=== PATIENT | female | born 1965 | race Hispanic/Latino ===

== ENCOUNTER 2022-09-09 14:03 | Emergency (ER) | payer OTHER ==
[~2022-09-09] VITALS: Ht 160 cm; Wt 119.3 kg
[2022-09-09 14:59] LABS: BASOPHILS % 0.5 % (0.0-1.0); EOSINOPHILS # (AUTO) 0.2 (0.0-0.4); EOSINOPHILS % 2.8 % (0.0-6.0); HEMATOCRIT 42.7 % (34.2-44.1); HEMOGLOBIN 12.5 g/dL (12.0-16.0); LYMPHOCYTES # (AUTO) 1.4 (1.0-3.2); MEAN CORPUSCULAR HEMOGLOBIN 27.3 pg (28-32); MEAN CORPUSCULAR HGB CONC 29.3 g/dL (31-35); MEAN CORPUSCULAR VOLUME 93.2 fL (81-99); MONOCYTES # (AUTO) 0.4 (0.2-0.8); MONOCYTES % 4.9 % (4.4-11.3); NEUTROPHILS # (AUTO) 6.2 (2.1-6.9); NEUTROPHILS % 74.4 % (38.7-80.0); PLATELET COUNT 320 x10e3/uL (140-360); RED BLOOD COUNT 4.58 x10e6/uL (3.6-5.1); RED CELL DISTRIBUTION WIDTH 13.5 % (11.7-14.4)
[2022-09-09] MEDS ORDERED: ASPIRIN 81 MG CHEW TAB PO ONE (15:00)
[2022-09-09 16:04] LABS: ALANINE AMINOTRANSFERASE 20 IU/L (0-55); ALBUMIN 3.4 g/dL (3.5-5.0); ALBUMIN/GLOBULIN RATIO 0.7 (0.8-2.0); ALKALINE PHOSPHATASE 91 IU/L (40-150); ANION GAP 13.7 mmol/L (8-16); BLOOD UREA NITROGEN 22 mg/dL (7-26); BUN/CREATININE RATIO 21 (6-25); CARBON DIOXIDE 29 mmol/L (22-29); CHLORIDE 103 mmol/L (98-107); CREATINE KINASE 45 IU/L (29-168); CREATININE, SERUM 1.04 mg/dL (0.57-1.11); GLUCOSE 92 mg/dL (74-118); POTASSIUM 3.7 mmol/L (3.5-5.1); SODIUM 142 mmol/L (136-145)
[2022-09-09] MEDS ORDERED: PREDNISONE50 MG PO (17:19)
[2022-09-09] MEDS ORDERED: ALBUTEROL2.5 MG/0.5 PO (17:19)
[2022-09-09 17:58] VITALS: BP 134/71
== END 2022-09-09 17:38 | disposition home or self-care (01) ==
LOC: ER 14:51
DX: R06.00 Dyspnea, unspecified (principal); J45.909 Unspecified asthma, uncomplicated; R51.9 Headache, unspecified; R42 Dizziness and giddiness; I10 Essential (primary) hypertension; Z86.16 Personal history of COVID-19
CPT/HCPCS: 0223U; 36415; 71045; 80053; 82550; 82553; 83880; 84484; 85025; 93005; 99283

== ENCOUNTER 2025-05-02 15:58 | Inpatient (IN) | payer OTHER ==
[~2025-05-02] VITALS: Ht 167.6 cm; Wt 116.1 kg
[~2025-05-02 15:58] MED LIST: ALBUTEROL2.5 MG/0.5 PO; PREDNISONE50 MG PO
[2025-05-02 16:30] VITALS: TEMP 98.4
[2025-05-02] MEDS ORDERED: SODIUM CHLORIDE FLUSH 10 ML SYR IV PRN (16:30)
[2025-05-02 17:09] LABS: BASOPHILS % 0.5 % (0.0-1.0); EOSINOPHILS % 2.9 % (0.0-6.0); LYMPHOCYTES % 14.7 % (18.0-39.1); MONOCYTES % 7.5 % (4.4-11.3); NEUTROPHILS % 74.1 % (38.7-80.0); RED CELL DISTRIBUTION WIDTH 14.8 % (11.7-14.4)
[2025-05-02 17:31] LABS: EST GLOMERULAR FILTRATION RATE 59.0 ML/MIN (>=60)
[2025-05-02] MEDS ORDERED: SODIUM CHLORIDE FLUSH 10 ML SYR INJ PRN (18:15)
[2025-05-02] MEDS ORDERED: ONDANSETRON HCL INJ 2MG/ML 2ML 2 MG/ML VIAL IV PRN (18:15)
[2025-05-02] MEDS ORDERED: IOPAMIDOL 370 MG/ML 100 ML INFUS..BTL INJ ONE (20:21)
[2025-05-02 20:30] VITALS: PULSE 75; RESP 15
[2025-05-02 21:27] VITALS: BP 132/63; PULSE 77; RESP 27; TEMP 98.1; O2SAT 96
[2025-05-02] MEDS ORDERED: SINGULAIR10 MG PO (21:51)
[2025-05-02] MEDS ORDERED: TRIAMTERENE50 MG PO (21:56)
[2025-05-02] MEDS ORDERED: FUROSEMIDE20 MG PO (21:56)
[2025-05-02] MEDS ORDERED: LEVALBUTEROL TA15 GM (21:56)
[2025-05-02 22:11] VITALS: BP 132/63; PULSE 78; RESP 23; TEMP 98.1; O2SAT 96
[2025-05-02] MEDS ORDERED: SIMETHICONE 80 MG CHEW PO PRN (23:15)
[2025-05-02] MEDS ORDERED: DOCUSATE SODIUM 100 MG CAP PO PRN (23:15)
[2025-05-02] MEDS ORDERED: POTASSIUM CHLORIDE 20 MEQ TAB CR PO PRN (23:15)
[2025-05-02] MEDS ORDERED: DEXTROSE 50% SYRINGE 50 ML IV PRN (23:15)
[2025-05-02] MEDS ORDERED: BENZONATATE 100 MG CAP PO PRN (23:15)
[2025-05-02] MEDS ORDERED: MECLIZINE HCL 12.5 MG TAB PO PRN (23:15)
[2025-05-02] MEDS ORDERED: DIPHENHYDRAMINE HCL 25 MG CAP PO PRN (23:15)
[2025-05-02] MEDS ORDERED: ALBUTEROL/IPRATROPIUM 3 ML NEB NEB PRN (23:15)
[2025-05-02] MEDS ORDERED: HYDRALAZINE HCL 20 MG/ML VIAL IV PRN (23:15)
[2025-05-02] MEDS ORDERED: MELATONIN 5 MG TABLET PO PRN (23:15)
[2025-05-02] MEDS ORDERED: LIDOCAINE 4% PATCH TP PRN (23:15)
[2025-05-03] VITALS (14 sets, daily range): BP systolic 118–146; BP diastolic 61–79; PULSE 72–85; RESP 16–21; TEMP 98–98.8; O2SAT 94–98
[2025-05-03] MEDS: MONTELUKAST SODIUM 10 MG TAB PO SCH (00:28)
[2025-05-03] MEDS: ACETAMINOPHEN 325 MG TAB PO PRN (01:57)
[2025-05-03 06:53] LABS: BASOPHILS % 0.4 % (0.0-1.0); EOSINOPHILS % 3.7 % (0.0-6.0); LYMPHOCYTES % 15.7 % (18.0-39.1); MONOCYTES % 6.9 % (4.4-11.3); NEUTROPHILS % 73.0 % (38.7-80.0); RED CELL DISTRIBUTION WIDTH 14.8 % (11.7-14.4)
[2025-05-03 07:23] LABS: CHOL/HDL RATIO 4.0 (3.0-3.6); LDL CHOLESTEROL 91.0 MG/DL (60-130); PHOSPHORUS 3.9 MG/DL (2.3-4.7)
[2025-05-03 07:26] LABS: EST GLOMERULAR FILTRATION RATE 75.0 ML/MIN (>=60)
[2025-05-03] MEDS: PANTOPRAZOLE SOD 40 MG TABEC PO SCH (08:48)
[2025-05-03] MEDS: ASPIRIN 81 MG ENTERIC COATED PO SCH (08:51)
[2025-05-03] MEDS: FUROSEMIDE INJ 10 MG/ML 2 ML VIAL IV ONE (15:04)
[2025-05-03] MEDS: ENOXAPARIN SOD INJ 40 MG/0.4 ML SYR SC SCH (16:29)
[2025-05-03] MEDS: FUROSEMIDE INJ 10 MG/ML 2 ML VIAL IV SCH (16:29)
[2025-05-03] MEDS: SALMETEROL XINAF/FLUTICASONE 250/50 MCG INHALER INH SCH (19:00)
[2025-05-04] VITALS (10 sets, daily range): BP systolic 110–129; BP diastolic 53–74; PULSE 62–89; RESP 16–20; TEMP 97.7–99; O2SAT 95–98
[2025-05-04 05:21] LABS: BASOPHILS % 0.4 % (0.0-1.0); EOSINOPHILS % 4.1 % (0.0-6.0); LYMPHOCYTES % 16.8 % (18.0-39.1); MONOCYTES % 5.4 % (4.4-11.3); NEUTROPHILS % 73.0 % (38.7-80.0); RED CELL DISTRIBUTION WIDTH 14.6 % (11.7-14.4)
[2025-05-04 05:49] LABS: EST GLOMERULAR FILTRATION RATE 64.0 ML/MIN (>=60)
[2025-05-04] MEDS: FUROSEMIDE 40 MG TAB PO SCH (12:56)
[2025-05-05] VITALS (7 sets, daily range): BP systolic 109–143; BP diastolic 52–83; PULSE 72–85; RESP 18–24; TEMP 97.6–98.8; O2SAT 96–100
[2025-05-05 05:08] LABS: BASOPHILS % 0.4 % (0.0-1.0); EOSINOPHILS % 3.9 % (0.0-6.0); LYMPHOCYTES % 16.0 % (18.0-39.1); MONOCYTES % 6.0 % (4.4-11.3); NEUTROPHILS % 73.6 % (38.7-80.0); RED CELL DISTRIBUTION WIDTH 14.7 % (11.7-14.4)
[2025-05-05 05:25] LABS: EST GLOMERULAR FILTRATION RATE 62.0 ML/MIN (>=60)
[2025-05-05] MEDS ORDERED: IOPAMIDOL 370 MG/ML 100 ML INFUS..BTL INJ ONE (10:37)
== END 2025-05-05 18:36 | disposition home or self-care (01) | DRG 314 ==
LOC: ER 16:28 → ERHOLD 18:03 → MED/SURG 21:08 → OBSVTOIN 05-03 23:54
PROVIDERS: ADMIT Internal Medicine; ATTEND Internal Medicine
DX: I27.29 Other secondary pulmonary hypertension (principal); J81.0 Acute pulmonary edema; Z68.41 Body mass index [BMI] 40.0-44.9, adult; R07.89 Other chest pain; E66.2 Morbid (severe) obesity with alveolar hypoventilation; I11.0 Hypertensive heart disease with heart failure; I50.9 Heart failure, unspecified; R06.00 Dyspnea, unspecified; J45.909 Unspecified asthma, uncomplicated; Z79.52 Long term (current) use of systemic steroids; Z90.49 Acquired absence of other specified parts of digestive tract; Z90.710 Acquired absence of both cervix and uterus; Z82.49 Family history of ischemic heart disease and other diseases of the circulatory system
CPT/HCPCS: 36415; 71045; 71260; 80048; 80053; 80061; 82550; 83036; 83735; 83880; 84100; 84443; 84484; 85025; 85379; 93005; 93306; 93970; 94760; 94799; 99284; G0378; J1650; J1938; J2470; Q9967